=== PATIENT | male | born 1985 | race Caucasian/White ===

== ENCOUNTER 2017-02-12 19:53 | Inpatient (IN) | payer OTHER ==
[~2017-02-12] VITALS: Ht 182.9 cm; Wt 106.0 kg
[~2017-02-12 19:53] MED LIST: CLON1TAB3 PO; DIVA500T3 PO; OXYC-609 PO; PRLSR20 PO; RISP1TAB68 PO; RISP3TAB12 PO; RTL20 PO; SNQ/25 PO
[2017-02-12] MEDS ORDERED: QUET1TAB34 PO (20:39)
[2017-02-12] MEDS ORDERED: GABA-113 PO (20:39)
[2017-02-12] MEDS ORDERED: QUET200T2 PO (20:39)
[2017-02-12 21:24] LABS: BASO % 0.2 %; BASO ABS # 0.02 K/uL (0-0.2); COMPLETE YES; EOS % 2.2 %; HEMATOCRIT 40.6 % (42-52); IG% 0.2 %; LYMPH % 24.3 %; LYMPH ABS # 2.12 K/uL (1.2-3.4); MEAN CELL VOLUME 87.3 fL (80-100); MEAN CORPUSCULAR HEMOGLOBIN 30.8 pg (25-34); MEAN CORPUSCULAR HGB CONC 35.2 g/dl (32-36); MEAN PLATELET VOLUME 8.9 fL (7.4-10.4); MONO % 4.6 %; NEUT % 68.5 %; PLATELET COUNT 212 K/uL (130-400); RED BLOOD COUNT 4.65 M/uL (4.7-6.1); WHITE BLOOD COUNT 8.71 K/uL (4.8-10.8)
[2017-02-12 21:29] LABS: BENZODIAZEPINE, URINE NEG (NEG); COCAINE,URINE NEG (NEG); PHENCYCLIDINE, URINE NEG (NEG)
[2017-02-12 21:42] LABS: ALT/SGPT 20 U/L (12-78); BLOOD UREA NITROGEN 12 mg/dl (7-18); BUN/CREATININE RATIO 13.5 (10-20); CARBON DIOXIDE 24 mmol/L (21-32); CHLORIDE 109 mmol/L (98-107); CREATININE 0.91 mg/dl (0.60-1.40); GLUCOSE 103 mg/dl (70-99); POTASSIUM 4.1 mmol/L (3.5-5.1); SODIUM 142 mmol/L (136-145)
[2017-02-12 21:45] LABS: ALKALINE PHOSPHATASE 89 U/L (45-117); AST/SGOT 12 U/L (15-37)
[2017-02-12 21:53] LABS: ACETAMINOPHEN 2 ug/ml (10-30); CALCIUM 8.2 mg/dl (8.5-10.1)
[2017-02-12 22:27] LABS: URINE APPEARANCE CLEAR (CLEAR); URINE BILIRUBIN NEG (NEG); URINE COLOR YELLOW; URINE NITRITE NEG (NEG); URINE SPECIFIC GRAVITY 1.027 (1.000-1.030); UROBILINOGEN NEG (NEG); ZZUR CULT IF INDIC CLEAN CATCH NO
[2017-02-12 22:29] LABS: MANUAL MICROSCOPIC REQUIRED? NO; REVIEW REQ? NO
[2017-02-13] MEDS ORDERED: NURSING VERBAL MED ORDER ONE ×2 (00:45→01:00)
--- NOTE | 2017-02-13 00:52 | EMERGENCY ROOM VISIT NOTE ---
History Report prepared by Cheo: Rachel Chávez Under the Supervision of: Dr. Ken Flores M.D. First contact with patient: 20:20 Chief Complaint: MENTAL HEALTH EVALUATION Stated Complaint: CHRONIC MAJOR MENTAL HEALTH PROBLEMS History of Present Illness The patient is a 32 year old male who presents to the Emergency Room with complaints of worsening mental health problems for the past several months. The patient has a history of mental health issues. Recently, he has been under increased stress with health problems and family problems. He admits to having thoughts of hurting himself, but has no plan or actions. He has tried hurting himself in the past. He admits to marijuana and oxycodone and [place] use. He denies any auditory or visual hallucinations recently. He does have a history of psychotic episodes. He is on psych medications which he was taking regularly. He reports that he threw them away because he was afraid his might take them. He notes that he has been able to sleep recently. He denies any other medical problems or symptoms. Source of History: patient Onset: several months Position: other (mental health) Quality: other (problems) Timing: worsening Note: Pt admits to thoughts of harming self. Pt denies having a plan, hallucination. Review of Systems See HPI for pertinent positives & negatives. A total of 10 systems reviewed and were otherwise negative. Past Medical & Surgical Medical Problems: (1) Depression Old medical records were reviewed. Nurse's notes were reviewed and I agree with. Family History Diabetes mellitus FHx: gallbladder disease FHx: heart disease Hypertension Social History Smoking Status: Current Every Day Smoker Alcohol Use: occasionally Marital Status: in relationship Housing Status: lives with significant other Occupation Status: unemployed Current/Historical Medications Scheduled Doxepin (Sinequan), 25 MG PO HS Gabapentin (Neurontin), 300 MG PO TID Methylphenidate (Ritalin), 20 MG PO DIRECTED Quetiapine Fumarate (Seroquel), 100 MG PO QPM Quetiapine Fumarate Xr (Seroquel Xr), 200 MG PO HS Allergies Uncoded Allergies: UNKNOWN ANTIBIOTIC (Allergy, Unknown, UNKNOWN, 02/12/17) Physical Exam Vital Signs Date Time Temp Pulse Resp B/P (MAP) Pulse Ox O2 Delivery O2 Flow Rate FiO2 02/13/17 00:53 36.6 64 16 110/67 02/12/17 23:25 80 16 118/72 97 Room Air 02/12/17 21:57 72 18 117/72 98 Room Air 02/12/17 20:05 37.1 83 18 124/82 96 Room Air Physical Exam General: Intermittently teary eyed, young male otherwise in no acute distress. Well developed well nourished, breathing comfortably on room air. Normal speech HEENT: Normal cephalic atraumatic. Pupils are equal round and reactive to light. Extraocular movements are intact. Oropharynx is pink with moist mucous membranes. No swelling of the mouth lips or tongue. Neck: Supple with a midline trachea. No meningeal signs or stiffness, no JVD or bruits. No Stridor. Chest: Clear to auscultation bilaterally. No wheezes or rhonchi. No increased work of breathing. Heart: regular rate and rhythm. Abdomen: Soft nontender, nondistended without rebound guarding or rigidity. Extremities: No cyanosis clubbing or edema. No calf tenderness or assymetry Spine/Back. Non tender to palpation. No CVA tenderness Skin: Good turgor without rashes. Neurologic exam: Cranial nerves two through 12 are intact. Motor and sensation are intact and symmetrical throughout. Psych: complaining about feeling depressed, is teary eyed. Medical Decision & Procedures Laboratory Results 02/12/17 21:16 Red Blood Count 4.65, Mean Corpuscular Volume 87.3, Mean Corpuscular Hemoglobin 30.8, Mean Corpuscular Hemoglobin Concent 35.2, Mean Platelet Volume 8.9, Neutrophils (%) (Auto) 68.5, Lymphocytes (%) (Auto) 24.3, Monocytes (%) (Auto) 4.6, Eosinophils (%) (Auto) 2.2, Basophils (%) (Auto) 0.2, Neutrophils # (Auto) 5.96, Lymphocytes # (Auto) 2.12, Monocytes # (Auto) 0.40, Eosinophils # (Auto) 0.19, Basophils # (Auto) 0.02 02/12/17 21:16 Test 02/12/17 21:00 02/12/17 21:16 Urine Color YELLOW Urine Appearance CLEAR (CLEAR) Urine pH 6.0 (4.5-7.5) Urine Specific [place] 1.027 (1.000-1.030) Urine Protein NEG (NEG) Urine Glucose (UA) NEG (NEG) Urine Ketones NEG (NEG) Urine Occult Blood NEG (NEG) Urine Nitrite NEG (NEG) Urine Bilirubin NEG (NEG) Urine Urobilinogen NEG (NEG) Urine Leukocyte Esterase NEG (NEG) Urine Opiates Screen POS (NEG) Urine Methadone, Qualitative NEG (NEG) Urine Barbiturates NEG (NEG) Urine Phencyclidine (PCP) Level NEG (NEG) Ur Amphetamine/Methamphetamine NEG (NEG) MDMA (Ecstasy) Screen NEG (NEG) Urine Benzodiazepines Screen NEG (NEG) Urine Cocaine Metabolite NEG (NEG) Urine Marijuana (THC) POS (NEG) White Blood Count 8.71 K/uL (4.8-10.8) Red Blood Count 4.65 M/uL (4.7-6.1) Hemoglobin 14.3 g/dL (14.0-18.0) Hematocrit 40.6 % (42-52) Mean Corpuscular Volume 87.3 fL (80-100) Mean Corpuscular Hemoglobin 30.8 pg (25-34) Mean Corpuscular Hemoglobin Concent 35.2 g/dl (32-36) Platelet Count 212 K/uL (130-400) Mean Platelet Volume 8.9 fL (7.4-10.4) Neutrophils (%) (Auto) 68.5 % Lymphocytes (%) (Auto) 24.3 % Monocytes (%) (Auto) 4.6 % Eosinophils (%) (Auto) 2.2 % Basophils (%) (Auto) 0.2 % Neutrophils # (Auto) 5.96 K/uL (1.4-6.5) Lymphocytes # (Auto) 2.12 K/uL (1.2-3.4) Monocytes # (Auto) 0.40 K/uL (0.11-0.59) Eosinophils # (Auto) 0.19 K/uL (0-0.5) Basophils # (Auto) 0.02 K/uL (0-0.2) RDW Standard Deviation 39.6 fL (36.4-46.3) RDW Coefficient of Variation 12.4 % (11.5-14.5) Immature Granulocyte % (Auto) 0.2 % Immature Granulocyte # (Auto) 0.02 K/uL (0.00-0.02) Anion Gap 9.0 mmol/L (3-11) Est Creatinine Clear Calc Drug Dose 148.0 ml/min Estimated GFR () 129.7 Estimated GFR (Non- 111.9 BUN/Creatinine Ratio 13.5 (10-20) Calcium Level 8.2 mg/dl (8.5-10.1) Total Bilirubin 0.3 mg/dl (0.2-1) Direct Bilirubin < 0.1 mg/dl (0-0.2) Aspartate Amino Transf (AST/SGOT) 12 U/L (15-37) Alanine Aminotransferase (ALT/SGPT) 20 U/L (12-78) Alkaline Phosphatase 89 U/L (45-117) Total Protein 6.6 gm/dl (6.4-8.2) Albumin 3.6 gm/dl (3.4-5.0) Lipase 118 U/L (73-393) Thyroid Stimulating Hormone (TSH) 0.929 uIu/ml (0.300-4.500) Salicylates Level < 1.7 mg/dl (2.8-20) Acetaminophen Level 2 ug/ml (10-30) Ethyl Alcohol mg/dL < 3.0 mg/dl (0-3) Laboratory studies as stated above per my review. ED Course 2021: Past medical records reviewed. The patient was evaluated in room A7, and a complete history and physical examination were performed. 2151: The patient is medically clear. information assurance manager is looking to get the patient into [address] [place] [address]. 1: I reevaluated the patient. He is awaiting evaluation. 0039: The patient has been accepted to [address] [place] [address]. 0045: Upon reevaluation, the patient is resting comfortably. I discussed the results and treatment plan with the patient. He verbalized agreement of the treatment plan. The patient will be going to [address] [place] [address]. Medical Decision Differentials include, but are not limited to; depression, anxiety, electrolyte or metabolic abnormality. This patient comes in as described above. He was placed in room A7. Here for treatment and evaluation of depression and anxiety. He is very teary-eyed. He' s had some marital problems and stress. He has had some fleeting thoughts of hurting himself but no concrete plan. He denies any overdose. Multiple blood testing was obtained. He has nothing to suggest acute toxicologic process or infection. He is medically cleared he was seen by [facility]. they are going to admit him voluntarily for further patient inpatient treatment and evaluation. Impression Primary Impression: Depression Additional Impression: Anxiety Scribe Attestation The scribe's documentation has been prepared under my direction and personally reviewed by me in its entirety. I confirm that the note above accurately reflects all work, treatment, procedures, and medical decision making performed by me. Departure Information Dispostion Mental Health Acute Care Referrals No Doctor, Assigned (PCP) Patient Instructions [facility] Problem Qualifiers
[2017-02-13 00:53] VITALS: BP 110/67; PULSE 64; TEMP 36.6; Ht 182.9 cm; Wt 106.0 kg
[2017-02-13 01:07] VITALS: O2SAT 98
[2017-02-13] MEDS ORDERED: GABAPENTIN 300 MG CAP PO STA (01:08)
[2017-02-13] MEDS ORDERED: QUETIAPINE FUMARATE 100 MG TAB PO STA (01:08)
[2017-02-13] MEDS ORDERED: MAGNESIUM HYDROXIDE SUSP 30 ML UDC PO PRN (01:30)
[2017-02-13] MEDS ORDERED: ALUMINUM/MAGNESIUM SUSP 30 ML UDC PO PRN (01:30)
[2017-02-13] MEDS ORDERED: BISMUTH SUBSALICYLATE PER ML OMNICELL CHARGE PO PRN (01:30)
[2017-02-13] MEDS ORDERED: SODIUM CHLORIDE 0.65% NA SOLN 45 ML (OCEAN) PRN (01:30)
[2017-02-13] MEDS ORDERED: hydrOXYzine HCL 25 MG TAB PO PRN ×2 (01:30)
[2017-02-13 06:59] VITALS: BP_SYST 114; BP_SYST 95; BP_DIAS 63; BP_DIAS 74; PULSE 65; PULSE 77; TEMP 36.4
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
[2017-02-13] MEDS ORDERED: DIVA500T59 PO (14:10)
[2017-02-13] MEDS: GABAPENTIN 300 MG CAP PO SCH ×2 (14:17→20:51)
[2017-02-13] MEDS: DOXEPIN HCL 25 MG CAP PO SCH (20:51)
[2017-02-13] MEDS ORDERED: QUETIAPINE FUMARATE 100 MG TAB PO SCH ×2 (21:00→21:30)
[2017-02-13] MEDS ORDERED: QUETIAPINE FUMARATE 200 MG TABCR PO SCH ×2 (22:00→22:30)
[2017-02-13] MEDS: ACETAMINOPHEN 325 MG TAB PO PRN (22:03)
[2017-02-14 06:54] VITALS: BP_SYST 104; BP_SYST 96; BP_DIAS 53; BP_DIAS 70; PULSE 62; PULSE 81; TEMP 36.3
[2017-02-14] MEDS: GABAPENTIN 300 MG CAP PO SCH ×3 (08:36→20:53)
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
[2017-02-14] MEDS: QUETIAPINE FUMARATE 200 MG TABCR PO SCH (17:19)
[2017-02-14] MEDS: DOXEPIN HCL 25 MG CAP PO SCH (20:53)
[2017-02-14] MEDS: QUETIAPINE FUMARATE 100 MG TAB PO SCH (21:39)
[2017-02-15 07:00] VITALS: BP_SYST 95; BP_SYST 97; BP_DIAS 57; BP_DIAS 60; PULSE 60; PULSE 74; TEMP 36.4
[2017-02-15] MEDS: GABAPENTIN 300 MG CAP PO SCH ×3 (09:27→21:10)
[2017-02-15] MEDS: TOPIRAMATE 50 MG TAB PO SCH (13:45)
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
[2017-02-15 16:24] LABS: COD UR NEGATIVE NG/ML (CUTOFF=50); HYDROCOD UR 1650 NG/ML (CUTOFF=50); HYDROMOR UR 95 NG/ML (CUTOFF=50); MORPHINE UR NEGATIVE NG/ML (CUTOFF=50); NORHYDROCODONE CONF UR 3330 NG/ML (CUTOFF=50); OXYMORPH UR NEGATIVE NG/ML (CUTOFF=50)
[2017-02-15] MEDS: QUETIAPINE FUMARATE 200 MG TABCR PO SCH (17:23)
[2017-02-15] MEDS: DOXEPIN HCL 25 MG CAP PO SCH (21:10)
[2017-02-15] MEDS: QUETIAPINE FUMARATE 100 MG TAB PO SCH (21:10)
[2017-02-16 07:08] VITALS: BP_SYST 103; BP_SYST 105; BP_DIAS 68; BP_DIAS 69; PULSE 73; PULSE 80; TEMP 36.4
[2017-02-16] MEDS: TOPIRAMATE 50 MG TAB PO SCH (09:03)
[2017-02-16] MEDS: GABAPENTIN 300 MG CAP PO SCH ×3 (09:03→21:46)
[2017-02-16] MEDS ORDERED: DIPHENOXYLATE/ATROPINE 2.5/0.025MG TAB PO PRN (10:45)
[2017-02-16] MEDS: CLONIDINE HCL 0.1 MG TAB PO PRN ×2 (11:32→17:55)
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
[2017-02-16 14:33] VITALS: BP 119/78; PULSE 88; TEMP 37.2; O2SAT 94
[2017-02-16 17:00] VITALS: BP 120/78; PULSE 89
[2017-02-16] MEDS: QUETIAPINE FUMARATE 200 MG TABCR PO SCH (17:27)
[2017-02-16 18:04] VITALS: BP 112/76; PULSE 91
[2017-02-16 19:54] VITALS: BP 106/69; PULSE 89
[2017-02-16] MEDS: DOXEPIN HCL 25 MG CAP PO SCH (21:46)
[2017-02-16] MEDS: QUETIAPINE FUMARATE 100 MG TAB PO SCH (21:46)
[2017-02-16] MEDS: ACETAMINOPHEN 325 MG TAB PO PRN (23:14)
[2017-02-17 07:03] VITALS: BP_SYST 100; BP_SYST 91; BP_DIAS 57; BP_DIAS 66; PULSE 63; PULSE 74; TEMP 36.4
[2017-02-17 08:05] VITALS: BP 100/66; PULSE 63; TEMP 36.4
[2017-02-17] MEDS: GABAPENTIN 300 MG CAP PO SCH ×3 (09:29→21:54)
[2017-02-17] MEDS: TOPIRAMATE 50 MG TAB PO SCH (09:29)
[2017-02-17 10:10] VITALS: BP 110/72; PULSE 93
[2017-02-17] MEDS: CLONIDINE HCL 0.1 MG TAB PO PRN ×3 (10:12→20:02)
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
[2017-02-17] MEDS: ACETAMINOPHEN 325 MG TAB PO PRN (13:51)
[2017-02-17 16:10] VITALS: BP 104/69; PULSE 78
[2017-02-17] MEDS: QUETIAPINE FUMARATE 200 MG TABCR PO SCH (17:45)
[2017-02-17 20:05] VITALS: BP 118/75; PULSE 89; TEMP 36.7
[2017-02-17] MEDS: DOXEPIN HCL 25 MG CAP PO SCH (21:53)
[2017-02-17] MEDS: QUETIAPINE FUMARATE 100 MG TAB PO SCH (21:54)
[2017-02-18 08:57] VITALS: BP_SYST 118; BP_SYST 126; BP_DIAS 75; PULSE 89; PULSE 91
[2017-02-18] MEDS: TOPIRAMATE 50 MG TAB PO SCH (08:57)
[2017-02-18] MEDS: GABAPENTIN 300 MG CAP PO SCH (08:57)
[2017-02-18] MEDS: CLONIDINE HCL 0.1 MG TAB PO PRN (09:45)
[2017-02-18] MEDS: ACETAMINOPHEN 325 MG TAB PO PRN (09:46)
[2017-02-18] MEDS ORDERED: TPM/50 PO (10:21)
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
== END 2017-02-18 11:04 | disposition home or self-care (01) | DRG 881 ==
LOC: C.EDB 19:55 → C.MHU 02-13 00:43
PROVIDERS: ADMIT Psychiatry & Neurology Child & Adolescent Psychiatry; ATTEND Psychiatry & Neurology Psychiatry
DX: F32.9 Major depressive disorder, single episode, unspecified (principal); F90.9 Attention-deficit hyperactivity disorder, unspecified type; F12.10 Cannabis abuse, uncomplicated; F17.200 Nicotine dependence, unspecified, uncomplicated; F11.10 Opioid abuse, uncomplicated; Z79.899 Other long term (current) drug therapy